=== PATIENT | male | born 1950 | race Two or more races ===

== ENCOUNTER 2018-02-16 00:01 | Emergency (ER) | payer BC, MEDICAID, OTHER ==
[~2018-02-16] VITALS: Ht 177.8 cm; Wt 65.8 kg
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
--- NOTE | 2018-02-16 01:30 | NUR ---
PT TO CT SCAN
[2018-02-16] MEDS ORDERED: ACETAMINOPHEN ES 500 MG TABLET PO ONE (02:00)
--- NOTE | 2018-02-16 02:00 | NUR ---
PT REFUSED TYLENOL AT THIS TIME, WILL REASSESS IN 30 MINS
[2018-02-16 03:24] VITALS: BP 123/70
== END 2018-02-16 03:25 | disposition home or self-care (01) ==
LOC: ER 00:03
DX: S09.8XXA Other specified injuries of head, initial encounter (principal); R51 Headache; V49.49XA Driver injured in collision with other motor vehicles in traffic accident, initial encounter; Y93.89 Activity, other specified; Y92.410 Unspecified street and highway as the place of occurrence of the external cause; Y99.8 Other external cause status
CPT/HCPCS: 70450-TC; 72125-TC; A4606; Z7610

== ENCOUNTER 2018-10-02 23:03 | Emergency (ER) | payer BC ==
[~2018-10-02] VITALS: Ht 177.8 cm; Wt 72.6 kg
[2018-10-02 23:10] VITALS: BP 128/81
[2018-10-02] MEDS ORDERED: HYDROCODONE/APAP 5/325MG 1 EACH TABLET PO ONE (23:30)
[2018-10-02] MEDS ORDERED: HYDROCODONE/APAP 5/325MG 1 EACH TABLET ONE (23:33)
--- NOTE | 2018-10-03 02:27 | NUR ---
TAP CARD PROVIDED.
--- NOTE | 2018-10-03 02:28 | NUR ---
Patient discharged to home in stable condition. Written and verbal after care instructions given. Patient verbalizes understanding of instruction.
== END 2018-10-03 02:31 | disposition home or self-care (01) ==
LOC: ER 23:07
DX: S13.4XXA Sprain of ligaments of cervical spine, initial encounter (principal); S09.8XXA Other specified injuries of head, initial encounter; Z60.2 Problems related to living alone; V49.49XA Driver injured in collision with other motor vehicles in traffic accident, initial encounter; Y93.89 Activity, other specified; Y92.413 State road as the place of occurrence of the external cause; Y99.8 Other external cause status
CPT/HCPCS: 70450-TC; 72125-TC